=== PATIENT | female | born 1975 | race Caucasian/White ===

== ENCOUNTER → 2016-09-19 | Outpatient (CLI) | payer BC ==
--- NOTE | 2016-09-20 08:57 | RADIOLOGY REPORT (SQ) ---
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 RADIONUCLIDE AND DOSE: 12.0 mCi F18 FDG The route of agent administration: Intravenous FASTING BLOOD SUGAR: 82 mg/dl CONTRAST TYPE AND DOSE: No CT contrast given. TECHNIQUE: Blood glucose level was verified. Above dose of FDG was injected intravenously. 2-D seg mented attenuation correction images were obtained from the base of the skull to the midthighs. Nonc ontrast CT images were obtained for attenuation correction and fusion with emission images. CT image s were performed without oral or intravenous contrast and are not sensitive for parenchymal lesions. A series of overlapping emission PET images were obtained. [email or web address] by the radiologist. Images stored on PACS. LIMITATIONS: None. FINDINGS: HEAD AND NECK: No areas of abnormal metabolic activity in the soft tissues of the head and neck. CHEST: No areas of abnormal metabolic activity in the chest. ABDOMEN AND PELVIS: No areas of abnormal metabolic activity in the abdomen. Expected physiologic act ivity is present in the genitourinary system and bowel. In the pelvis there is a focal low-attenuati on lesion in the right lower pelvis measuring 1.5 cm (series 3, image 191). Mean SUV value 5.05. Di fficult to completely visualize on the noncontrast CT images. PROXIMAL LOWER EXTREMITIES: No areas of abnormal metabolic activity in the soft tissues of the lower extremities. BONES: No abnormal metabolic activity in the visualized skeleton. ADDITIONAL CT FINDINGS: No additional significant findings on the noncontrast CT images. OTHER: No other significant findings. IMPRESSION: 1. FOCAL LESION IN THE RIGHT LOWER PELVIS WITH INCREASED METABOLIC ACTIVITY. THIS COULD REPRESENT AN ABNORMAL LYMPH NODE. HOWEVER, EVALUATION ON CT IMAGING IS LIMITED DUE TO LOWER QUALITY CT IMAGES WI THOUT CONTRAST. OTHER POSSIBLE ETIOLOGIES INCLUDE A LESION IN THE RIGHT OVARY OR EVEN A POSSIBLE KASSIE DDER DIVERTICULUM. WOULD RECOMMEND A ROUTINE CT OF THE ABDOMEN AND PELVIS WITH ORAL AND INTRAVENOUS CONTRAST TO PROVIDE BETTER ANATOMIC DETAIL AND FURTHER IMAGING BASED ON RESULTS OF THE DIAGNOSTIC CT. 2. REMAINDER OF THE STUDY IS OTHERWISE UNREMARKABLE. NO ABNORMAL ACTIVITY ELSEWHERE. TECHNICAL DOCUMENTATION: JOB ID: [id number] All Rights Reserved
== END ==
LOC: RAD 21:08
PROVIDERS: ATTEND Internal Medicine
DX: C85.99 Non-Hodgkin lymphoma, unspecified, extranodal and solid organ sites (principal)
CPT/HCPCS: 78815; A9552